=== PATIENT | male | born 1995 | race Caucasian/White ===

== ENCOUNTER 2018-10-21 08:59 | Emergency (ER) | payer OTHER ==
[2018-10-21] MEDS ORDERED: AMOXicillin 250 MG CAP ONE (09:19)
== END 2018-10-21 09:25 | disposition home or self-care (01) ==
LOC: BURERS 08:59
DX: J02.9 Acute pharyngitis, unspecified (principal); I10 Essential (primary) hypertension
CPT/HCPCS: 99282

== ENCOUNTER 2021-02-11 08:05 | Emergency (ER) | payer OTHER ==
[2021-02-11] MEDS ORDERED: Ondansetron PF 4 MG/2 ML Vial ONE ×2 (08:50→10:04)
[2021-02-11] MEDS ORDERED: Famotidine In NaCl 20 mg/50 ml Premix Bag ONE (08:50)
[2021-02-11 09:08] LABS: Band 7 % (5-11); Eosinophils 1 % (0-10); Hemoglobin 18.2 g/dL (14.0-18.0); Lymphocytes 2 % (21-51); MDiff Complete? YES; Mean Corpuscular HGB CONC 31.6 g/dL (32.0-36.0); Mean Corpuscular Hemoglobin 27.5 pg (27.0-31.0); Mean Corpuscular Volume 87.2 fL (78.0-98.0); Mean Platelet Volume 8.2 fL (7.4-10.4); Monocytes 2 % (0-10); Neutrophil 88 % (42-75); Platelet Count 230 thou/uL (130-400); RBC Distribution Width 12.7 % (11.5-14.5); White Blood Cell (WBC) Count 15.8 thou/uL (4.8-10.8)
[2021-02-11 09:10] LABS: ALT (SGPT) 34 U/L (8-55); AST (SGOT) 30 U/L (5-34); Albumin 4.8 g/dL (3.5-5.0); Alkaline Phosphatase 80 U/L (40-110); Anion Gap 20 mmol/L (10-20); BUN (Urea Nitrogen) 24 mg/dL (8.9-20.6); Bilirubin, Total 0.5 mg/dL (0.2-1.2); Calc. Creatinine Clearance 0 mL/min (70-130); Calcium 9.9 mg/dL (7.8-10.44); Carbon Dioxide 20 mmol/L (22-29); Chloride 106 mmol/L (98-107); Globulin 3.4 g/dL (2.4-3.5); Glucose 132 mg/dL (70-105); Lipase 63 U/L (8-78); Potassium 4.5 mmol/L (3.5-5.1); Protein, Total 8.2 g/dL (6.0-8.3); Sodium 141 mmol/L (136-145)
[2021-02-11] MEDS ORDERED: Glycopyrrolate 0.4 MG/ 2 ML VIAL ONE (10:04)
[2021-02-11 10:22] LABS: Bilirubin Negative (Negative); Blood, Urine Trace (Negative); Clarity Clear (Clear); Glucose, Urine (Dipstick) Negative (Negative); Ketone, Urine Negative (Negative); Leukocyte Negative (Negative); Nitrite Negative (Negative); Protein, Urine (Dipstick) Negative (Neg-Trace); Urobilinogen 0.2 mg/dL (Less than 2)
[2021-02-11 10:24] LABS: Bacteria/HPF None Seen HPF (None Seen); RBC/HPF 0-3 HPF (0-3); Squamous Epithelial 0-3 HPF (0-3); WBC/HPF None Seen HPF (0-3)
[2021-02-11] MEDS ORDERED: Iopamidol 370 76% 100 ML VIAL ONE (10:51)
== END 2021-02-11 10:43 | disposition home or self-care (01) ==
LOC: BURERS 08:05
DX: A08.4 Viral intestinal infection, unspecified (principal); I10 Essential (primary) hypertension; F17.220 Nicotine dependence, chewing tobacco, uncomplicated
CPT/HCPCS: 36415; 74177; 80053; 81003; 81015; 83690; 85025; 96374; 96375; 96376; J2405; Q9967

== ENCOUNTER 2021-06-06 07:59 | Emergency (ER) | payer OTHER ==
[2021-06-06] MEDS ORDERED: predniSONE 20 MG TAB ONE (08:52)
[2021-06-06] MEDS ORDERED: Ciprofloxacin 500 MG TAB ONE (08:52)
== END 2021-06-06 08:58 | disposition home or self-care (01) ==
LOC: BURERS 07:59
DX: T78.40XA Allergy, unspecified, initial encounter (principal); I10 Essential (primary) hypertension; K21.9 Gastro-esophageal reflux disease without esophagitis; F17.220 Nicotine dependence, chewing tobacco, uncomplicated
CPT/HCPCS: 99283; J7512